=== PATIENT | male | born 1985 | race American Indian/Alaskan Native ===

== ENCOUNTER 2017-06-16 10:47 | Emergency (ER) | payer BC ==
[2017-06-16 10:57] VITALS: BP 134/77; PULSE 78; RESP 20; TEMP 98; O2SAT 99
[2017-06-16 10:58] VITALS: BMI 26.9
--- NOTE | 2017-06-16 11:31 | ED PDOC ---
HPI: Chest Pain Time Seen by Provider: 06/16/17 11:07 Chief Complaint (Nursing): Chest Pain Chief Complaint (Provider): Chest Pain History Per: Patient History/Exam Limitations: no limitations Onset/Duration Of Symptoms: Days Current Symptoms Are (Timing): Still Present Additional Complaint(s): 32 y/o male presents to the emergency department with a complain to a sharp right sided chest pain radiating to the right shoulder since this morning. States pain worsens on inspiration and with movement of the right arm. Denies shortness of breath. Past Medical History Reviewed: Historical Data, Nursing Documentation, Vital Signs Vital Signs: Last Vital Signs Temp 98 F 06/16/17 10:55 Pulse 78 06/16/17 10:55 Resp 20 06/16/17 10:55 BP 134/77 06/16/17 10:55 Pulse Ox 99 06/16/17 11:32 - Medical History PMH: No Chronic Diseases - Surgical History Surgical History: No Surg Hx - Family History Family History: States: Unknown Family Hx - Social History Current smoker - smoking cessation education provided: No Alcohol: None Drugs: Denies - Home Medications Home Medications: Ambulatory Orders Medication Instructions Recorded Azithromycin [Zithromax] 250 mg PO DAILY #6 cap 03/22/15 Codeine Phos/Phenyleph HCl/P 5 ml PO Q6H #100 syr 03/22/15 [Phenergan Vc W/Codeine 120 ml] Prednisone 10 mg PO TID #15 tab 03/22/15 Naproxen [Naprosyn] 500 mg PO Q12H #20 tab 06/16/17 Non-Formulary 1 ea .ROUTE Q6 #1 ea 06/16/17 - Allergies Allergies/Adverse Reactions: Allergies Allergy/AdvReac Type Severity Reaction Status Date / Time No Known Allergies Allergy Verified 06/16/17 11:05 Review of Systems ROS Statement: Except As Marked, All Systems Reviewed And Found Negative Cardiovascular: Positive for: Chest Pain Respiratory: Negative for: Shortness of Breath Musculoskeletal: Positive for: Shoulder Pain (Right) Physical Exam - Reviewed Nursing Documentation Reviewed: Yes Vital Signs Reviewed: Yes - Physical Exam Appears: Positive for: Non-toxic, No Acute Distress Head Exam: Positive for: ATRAUMATIC, NORMAL INSPECTION, NORMOCEPHALIC Skin: Positive for: Normal Color, Warm, Dry Neck: Positive for: Normal, Supple Cardiovascular/Chest: Positive for: Regular Rate, Rhythm, Other (Reproducible chest pain to the right interior chest wall). Negative for: Chest Non Tender, Murmur Respiratory: Positive for: Normal Breath Sounds (Clear b/l). Negative for: Accessory Muscle Use, Respiratory Distress Extremity: Positive for: Normal ROM (FULL). Negative for: Pedal Edema Neurologic/Psych: Positive for: Alert, Oriented (x3) - ECG O2 Sat by Pulse Oximetry: 99 (RA) Pulse Ox Interpretation: Normal Medical Decision Making Medical Decision Making: Time: 11:16 Initial impression: Chest pain Initial plan: --EKG --Troponin I --Chest x-ray --Reevaluation Scribe Attestation: Documented by Carmelita Santiago, acting as a scribe for Donovan De Leon MD. Provider Scribe Attestation: All medical record entries made by the Scribe were at my direction and personally dictated by me. I have reviewed the chart and agree that the record accurately reflects my personal performance of the history, physical exam, medical decision making, and the department course for this patient. I have also personally directed, reviewed, and agree with the discharge instructions and disposition. Disposition - Clinical Impression Clinical Impression: Chest wall pain - Patient ED Disposition Is Patient to be Admitted: No - Disposition Referrals: [facility] [Outside] Disposition: Routine/Home Disposition Time: 12:38 Condition: FAIR Prescriptions: Naproxen [Naprosyn] 500 mg PO Q12H #20 tab Non-Formulary 1 ea .ROUTE Q6 #1 ea Instructions: Chest Wall Pain (ED) Forms: [employer] (Salvadorean)
--- NOTE | 2017-06-16 12:13 | RAD ---
HISTORY: chest pain COMPARISON: Comparison chest 03/22/2015 TECHNIQUE: Chest PA and lateral FINDINGS: LUNGS: No active pulmonary disease. PLEURA: No significant pleural effusion identified. No pneumothorax apparent. CARDIOVASCULAR: Normal. OSSEOUS STRUCTURES: No significant abnormalities. VISUALIZED UPPER ABDOMEN: Normal. OTHER FINDINGS: None. IMPRESSION: No active disease.
--- NOTE | 2017-06-16 20:44 | CARD ---
APPROVED REPORT EKG Measurement Heart [id number] <Conclusion> Normal sinus rhythm with sinus arrhythmia Incomplete left bundle branch block Borderline ECG
== END 2017-06-16 12:46 | disposition home or self-care (01) ==
LOC: H.ER 10:47
DX: R07.89 Other chest pain (principal)